=== PATIENT | female | born 1950 | race Caucasian/White ===

== ENCOUNTER → 2016-06-01 | Outpatient (CLI) | payer MEDICARE, OTHER ==
[~2016-06-01] MED LIST: AMARYL 2MG TABLE2 MG PO; AMARYL1 MG PO; AMARYL2 MG PO; ASPIRIN CHEWABL81 MG PO; BETIMOL5 ML OP; BREO ELLIPTA 11 EACH INH; CARDIZEM CD240 MG PO; CEFUROXIME500 MG PO; CLARITIN 10MG T10 MG PO; COLACE 100MG C100 MG PO; COREG 3.125M3.125 MG PO; HABITROL 14 MG P1 EA TD; INCRUSE ELLI62.5 MCG INH; IPRAT-ALBUT 0.5-3 ML INH; LEVAQUIN500 MG PO; MIRALAX PACK 171 PKT PO; MONTELUKAST SOD10 MG PO; NEURONTIN 100100 MG PO; NORVASC5 MG PO; OSTERA TABLET1 EACH PO; OXYCODONE HCL10 MG PO; PEPCID20 MG PO; PERFOROMIS20 MCG/2 M INH; PHOSLO 667 MG667 MG PO; PRAVACHOL20 MG PO; PROVENTIL HFA 61 INH INH; PULMICORT0.5 MG/2 M INH; RENVELA800 MG PO; SENNA LAX8.6 MG PO; SPIRIVA18 MCG INH; TESSALON PERLE100 MG PO; VENTOLIN HFA 66.7 GM INH; VENTOLIN/PROVE0.5 ML INH
== END ==
LOC: HEART 5 13:29
DX: R04.2 Hemoptysis (principal); F17.210 Nicotine dependence, cigarettes, uncomplicated; R94.2 Abnormal results of pulmonary function studies
CPT/HCPCS: 94060; 94729